=== PATIENT | male | born 1940 | race Hispanic/Latino ===

== ENCOUNTER 2019-05-02 12:50 | Emergency (ER) | payer MEDICARE, MEDICAID ==
[2019-05-02] MEDS ORDERED: Bupivacaine 0.5% 10 ML VIAL ONE ×2 (14:00→14:06)
--- NOTE | 2019-05-02 14:12 | RAD ---
XR Foot Lt 3 View STANDARD INDICATION: Left foot infection COMPARISON: None. FINDINGS: Bones: No acute fracture identified. 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 Lisfranc alignment: Lisfranc alignment appears within normal limits. Soft tissues: No soft tissue injury demonstrated. No radiographic foreign body demonstrated. IMPRESSION: No acute osseous abnormality.
== END 2019-05-02 14:37 | disposition home or self-care (01) ==
LOC: ERS 12:50 → MERGE 12:50 → ERS 14:37
DX: L60.0 Ingrowing nail (principal)
CPT/HCPCS: 11750; J3490